=== PATIENT | male | born 1980 | race Caucasian/White ===

== ENCOUNTER 2017-06-12 03:15 | Inpatient (IN) | payer OTHER ==
[~2017-06-12] VITALS: Ht 167.6 cm; Wt 108.0 kg
[2017-06-12 04:22] LABS: BASOPHIL % 0.5 % (0-2); PLATELET COUNT 310 x10^3mcL (130-400); RED CELL DISTRIBUTION WIDTH 13.8 % (11.5-14.5)
[2017-06-12 04:36] LABS: CALCIUM 8.8 mg/dL (8.5-10.1); CARBON DIOXIDE 28.7 mmol/L (21-32); CHLORIDE SERUM 104 mmol/L (98-107); CREATININE SERUM 0.9 mg/dL (0.7-1.3); GFR1 > 60 mL/min; GLUCOSE SERUM 89 mg/dL (74-106); POTASSIUM SERUM 3.7 mmol/L (3.5-5.1); SODIUM SERUM 137 mmol/L (136-145)
[2017-06-12 04:44] LABS: T3 TOTAL 1.41 ng/mL
[2017-06-12 04:52] LABS: ALKALINE PHOSPHATASE 71 U/L (46-116); ALT/SGPT 38 U/L (16-63); AST/SGOT 24 U/L (15-37); BILIRUBIN TOTAL 0.5 mg/dL (0.20-1.00); C REACTIVE PROTEIN 7.6 mg/dL (<=0.9); TOTAL PROTEIN, SERUM 7.4 g/dL (6.4-8.2)
[2017-06-12 04:58] LABS: ALBUMIN 3.2 g/dL (3.4-5.0)
[2017-06-12 05:01] LABS: FREE T4 1.2 ng/dL (0.76-1.46); FREE THYROXINE INDEX 3.6 ug/dL (1.4-4.5); T4(THYROXINE) 11.4 ug/dL (4.7-13.3)
[2017-06-12] MEDS ORDERED: TRAMADOL HCL50 MG (06:23)
[2017-06-12] MEDS ORDERED: IBUPROFEN400 MG (06:24)
[2017-06-12 07:59] LABS: CHOLESTEROL/HDL RATIO 3.5; PHOSPHOROUS 3.2 mg/dL (2.5-4.9)
[2017-06-12 08:17] LABS: AMPHETAMINE QUAL UR POSITIVE (NEG <=1000)
[2017-06-12 08:32] LABS: UA SPECIFIC GRAVITY 1.015 (1.005-1.035)
[2017-06-12 08:33] LABS: microscopic required? YES; urine erythrocyte TRACE (NEGATIVE)
[2017-06-12 09:38] VITALS: BP 121/75
[2017-06-12 10:16] VITALS: BP 121/75
[2017-06-12 13:46] VITALS: BP 115/69
[2017-06-12] MEDS ORDERED: LAC PO (15:47)
[2017-06-12] MEDS ORDERED: CLINDAMYCIN HC300 MG PO ×2 (15:48→16:00)
[2017-06-12 16:03] VITALS: BP 115/69
[2017-06-12 16:11] VITALS: BP 115/69
[2017-06-12 23:04] LABS: ERYTHROCYTE SED RATE 41 mm/hr (0-15)
== END 2017-06-12 17:17 | disposition home or self-care (01) | DRG 383 ==
LOC: ED 03:15 → DU 06:07 → MU 11:24
PROVIDERS: Specialist; ADMIT Family Medicine
DX: L03.311 Cellulitis of abdominal wall (principal); E44.0 Moderate protein-calorie malnutrition; S09.8XXA Other specified injuries of head, initial encounter; B95.61 Methicillin susceptible Staphylococcus aureus infection as the cause of diseases classified elsewhere; F17.200 Nicotine dependence, unspecified, uncomplicated; F12.90 Cannabis use, unspecified, uncomplicated; X58.XXXA Exposure to other specified factors, initial encounter; R31.9 Hematuria, unspecified; R73.03 Prediabetes; F15.10 Other stimulant abuse, uncomplicated; Z53.29 Procedure and treatment not carried out because of patient's decision for other reasons; D64.9 Anemia, unspecified; Y93.89 Activity, other specified; Y92.89 Other specified places as the place of occurrence of the external cause; Z68.38 Body mass index [BMI] 38.0-38.9, adult; Y99.8 Other external cause status
CPT/HCPCS: 36600; 83880; 84439; J2270; J2543; J7030; Q0092; Q9967